=== PATIENT | female | born 1975 | race Caucasian/White ===

== ENCOUNTER 2016-09-01 10:31 | Emergency (ER) | payer BC ==
[~2016-09-01] VITALS: Ht 170.2 cm; Wt 55.2 kg
[~2016-09-01 10:31] MED LIST: MULT-506 PO; NORGTAB36
[2016-09-01 10:38] VITALS: TEMP 36.7; Ht 170.2 cm; Wt 55.2 kg
[2016-09-01] MEDS ORDERED: VNTHFA/IN INH (11:29)
--- NOTE | 2016-09-01 11:32 | EMERGENCY ROOM VISIT NOTE ---
History Report prepared by Rony: Molly Acosta Under the Supervision of: Dr. Kyra Bartlett D.O. First contact with patient: 11:00 Chief Complaint: CARDIAC ASSESSMENT Stated Complaint: CHEST TIGHTNESS Nursing Triage Summary: pt reports training for 10 mile race and has exercise induced asthma , recentl has a tight feeling in chest when running and now has started having pressure and low heart rate with tightness after running. pt reports " I have not run X 1 week and am not very active" History of Present Illness The patient is a 40 year old female who presents to the Emergency Room with complaints of persistent chest tightness that started 3 weeks ago. Nothing seems to make the tightness better or worse. The patient states that she has been training for a 10 mile race since May. She states that she has been pushing herself since she started training. The patient reports that prior to training, she did run regularly. She has been running long distances both inside and outside. She is also experiencing mild shortness of breath that seems to be worse recently. The patient states that she has exercise induced asthma and the shortness of breath is worse with exercise but she still has it when she is not exercising. The patient reports that she is experiencing conversational dyspnea. The patient also reports that she is still experiencing shortness of breath even though she has not exercised for 1 week. Additionally, the patient was evaluated at [facility] one week ago. An EKG was unremarkable besides bradycardia, which the patient states is normal for her. She also received a nebulizer treatment there, which relieved her shortness of breath but the chest tightness persisted. The patient also saw her PCP yesterday and they scheduled her an appointment with cardiology, but she states that the appointment is not until September. The patient reports that all of her symptoms are making her nervous so she decided to come into the ED for further evaluation. The patient states that she is also experiencing increased fatigue and intermittent tingling in her bilateral hands. She denies abdominal pain, urinary symptoms, and diarrhea. She also denies any recent dietary changes or flu-like symptoms. She denies any personal history of GERD as well as any personal or family history of thyroid problems. The patient adds that her grandfather had a HI in his 60s and her father has hyperlipidemia. Source of History: patient Onset: 3 weeks ago Position: chest Quality: other (tightness) Timing: other (persistent) Associated Symptoms: + SOB, + fatigue, No abdominal pain, No diarrhea, No urinary symptoms Note: intermittent tingling in bilateral hands Review of Systems See HPI for pertinent positives & negatives. A total of 10 systems reviewed and were otherwise negative. Past Medical & Surgical Medical Problems: (1) Asthma Family History Heart disease Social History Smoking Status: Never Smoker Marital Status: Housing Status: lives with family Current/Historical Medications Scheduled Multivitamin (Multivitamin), 1 TAB PO DAILY Norgestimate-Ethinyl Estradiol (Ortho Tri-Cyclen), DAILY Scheduled PRN Albuterol Hfa (Ventolin Hfa), 1 PUFFS INH Q6H PRN for SOB/Wheezing Allergies Coded Allergies: No Known Allergies (Verified , 09/01/16) Physical Exam Vital Signs Date Time Temp Pulse Resp B/P Pulse Ox O2 Delivery O2 Flow Rate FiO2 09/01/16 13:27 38 18 99/58 100 Room Air 09/01/16 12:17 34 09/01/16 11:51 37 16 104/69 100 Room Air 09/01/16 10:38 36.7 54 18 123/70 100 Room Air Physical Exam GENERAL: alert, well appearing, well nourished, no distress, non-toxic EYE EXAM: normal conjunctiva, PERRL and EOM's grossly intact OROPHARYNX: no exudate, no erythema, lips, buccal mucosa, and tongue normal and mucous membranes are moist NECK: supple, no nuchal rigidity, no adenopathy, non-tender LUNGS: Clear to auscultation. Normal chest wall mechanics HEART: no murmurs, S1 normal and S2 normal ABDOMEN: abdomen soft, non-tender, normo-active bowel sounds, no masses, no rebound or guarding. BACK: Back is symmetrical on inspection and there is no deformity, no midline tenderness, no CVA tenderness. SKIN: no rashes and no bruising UPPER EXTREMITIES: upper extremities are grossly normal. LOWER EXTREMITIES: No pitting edema. NEURO EXAM: Normal sensorium, cranial nerves II-XII grossly intact, normal speech, no gross weakness of arms, no gross weakness of legs. Medical Decision & Procedures ER Provider Diagnostic Interpretation: Xray results per the radiologist and my interpretation. CHEST 2 VIEWS ROUTINE IMPRESSION: Negative chest. Electronically signed by: Jose Galan M.D. 09/01/2016 11:41 AM Dictated Date/Time: 09/01/2016 11:41 AM Laboratory Results 09/01/16 11:00 Red Blood Count 4.31, Mean Corpuscular Volume 90.0, Mean Corpuscular Hemoglobin 30.2, Mean Corpuscular Hemoglobin Concent 33.5, Mean Platelet Volume 10.0, Neutrophils (%) (Auto) 57.0, Lymphocytes (%) (Auto) 32.2, Monocytes (%) (Auto) 9.0, Eosinophils (%) (Auto) 1.3, Basophils (%) (Auto) 0.5, Neutrophils # (Auto) 2.16, Lymphocytes # (Auto) 1.22, Monocytes # (Auto) 0.34, Eosinophils # (Auto) 0.05, Basophils # (Auto) 0.02 09/01/16 11:00 Test 09/01/16 11:00 09/01/16 11:05 White Blood Count 3.79 K/uL (4.8-10.8) Red Blood Count 4.31 M/uL (4.2-5.4) Hemoglobin 13.0 g/dL (12.0-16.0) Hematocrit 38.8 % (37-47) Mean Corpuscular Volume 90.0 fL (80-100) Mean Corpuscular Hemoglobin 30.2 pg (25-34) Mean Corpuscular Hemoglobin Concent 33.5 g/dl (32-36) Platelet Count 163 K/uL (130-400) Mean Platelet Volume 10.0 fL (7.4-10.4) Neutrophils (%) (Auto) 57.0 % Lymphocytes (%) (Auto) 32.2 % Monocytes (%) (Auto) 9.0 % Eosinophils (%) (Auto) 1.3 % Basophils (%) (Auto) 0.5 % Neutrophils # (Auto) 2.16 K/uL (1.4-6.5) Lymphocytes # (Auto) 1.22 K/uL (1.2-3.4) Monocytes # (Auto) 0.34 K/uL (0.11-0.59) Eosinophils # (Auto) 0.05 K/uL (0-0.5) Basophils # (Auto) 0.02 K/uL (0-0.2) RDW Standard Deviation 44.8 fL (36.4-46.3) RDW Coefficient of Variation 13.5 % (11.5-14.5) Immature Granulocyte % (Auto) 0.0 % Immature Granulocyte # (Auto) 0.00 K/uL (0.00-0.02) Anion Gap 7.0 mmol/L (3-11) Est Creatinine Clear Calc Drug Dose 67.2 ml/min Estimated GFR () 84.7 Estimated GFR (Non- 73.1 BUN/Creatinine Ratio 13.4 (10-20) Calcium Level 9.0 mg/dl (8.5-10.1) Total Bilirubin 0.4 mg/dl (0.2-1) Aspartate Amino Transf (AST/SGOT) 15 U/L (15-37) Alanine Aminotransferase (ALT/SGPT) 19 U/L (12-78) Alkaline Phosphatase 29 U/L (45-117) Troponin I < 0.015 ng/ml (0-0.045) Pro-B-Type Natriuretic Peptide 109 pg/ml (0-450) Total Protein 6.9 gm/dl (6.4-8.2) Albumin 3.7 gm/dl (3.4-5.0) Globulin 3.2 gm/dl (2.5-4.0) Albumin/Globulin Ratio 1.2 (0.9-2) Thyroid Stimulating Hormone (TSH) 0.977 uIu/ml (0.300-4.500) D-Dimer < 190 ug/L FEU (0-500) Laboratory results per my review. Medications Administered Medications (Trade) Dose Ordered Sig/Maximus Route Start Time Stop Time Status Last Admin Dose Admin Al Hydroxide/Mg Hydroxide (Maalox Susp) 15 ml NOW STAT PO 09/01/16 12:20 09/01/16 12:22 DC 09/01/16 12:20 15 ML Alprazolam (Xanax Tab) 0.25 mg 1230 ONCE PO 09/01/16 12:30 09/01/16 12:31 DC 09/01/16 12:30 0.25 MG ECG Indication: chest pain Rate (beats per minute): 37 Rhythm: sinus bradycardia Findings: no acute ischemic change, no ectopy, other (normal axis, normal intervals) ED Course 1102: The patient was evaluated in room C6. A complete history and physical exam was performed. 1214: I reassessed the patient. She admits to being anxious and would like to try some Xanax. 1220: Ordered Maalox Susp 15 ml PO 1230: Ordered Xanax Tab 0.25 mg PO 1310: Upon reevaluation, the patient is feeling better. I discussed the findings and the treatment plan with the patient. She verbalizes agreement and understanding. She was discharged home. Medical Decision Differential diagnoses includes but is not limited to acute coronary syndrome, myocardial infarction, pericarditis, pulmonary embolus, aortic dissection, pneumonia, pneumothorax, musculoskeletal, shingles, esophageal. Pt likely with component of anxiety in addition to likely exercise induced asthma. Pt well appearing. Hx of bradycardia, likely persistent due to conditioning from running. Doubt related to chest pain/sob. Pt improved. Doubt tamponade, chf, gi bleed, perf, infectious etiology, discussed leukopenia and recheck with PCP. VS otw stable and pt well appearing at dc. Discussed f/ u with cardiology, sx to watch/return for, she verbalized understanding and was agreeable with plan. Impression Primary Impression: Chest tightness Additional Impression: Anxiety Scribe Attestation The scribe's documentation has been prepared under my direction and personally reviewed by me in its entirety. I confirm that the note above accurately reflects all work, treatment, procedures, and medical decision making performed by me. Departure Information Dispostion Home / Self-Care Referrals Christa Pineda DO (PCP) Forms IMPORTANT VISIT INFORMATION Patient Instructions My [facility] Additional Instructions Please: Follow-up with her family doctor this week. Please keep your appointment with cardiology as scheduled. Please avoid any strenuous activity and vigorous exercise until you are seen and evaluated by cardiology. Please eat and drink normally. If you have any recurrent episodes of chest discomfort , trouble breathing, feel dizzy/lightheaded, or you have any other new or concerning symptoms, please return the emergency room. Problem Qualifiers
[2016-09-01 11:34] LABS: BASO % 0.5 %; BASO ABS # 0.02 K/uL (0-0.2); COMPLETE YES; EOS % 1.3 %; HEMATOCRIT 38.8 % (37-47); LYMPH % 32.2 %; LYMPH ABS # 1.22 K/uL (1.2-3.4); MEAN CORPUSCULAR HEMOGLOBIN 30.2 pg (25-34); MEAN CORPUSCULAR HGB CONC 33.5 g/dl (32-36); PLATELET COUNT 163 K/uL (130-400); RED BLOOD COUNT 4.31 M/uL (4.2-5.4); WHITE BLOOD COUNT 3.79 K/uL (4.8-10.8)
[2016-09-01 11:39] LABS: BLOOD UREA NITROGEN 13 mg/dl (7-18); BUN/CREATININE RATIO 13.4 (10-20); CARBON DIOXIDE 28 mmol/L (21-32); CHLORIDE 106 mmol/L (98-107); CREATININE 0.97 mg/dl (0.60-1.20); GLUCOSE 91 mg/dl (70-99); POTASSIUM 3.9 mmol/L (3.5-5.1); SODIUM 141 mmol/L (136-145)
--- NOTE | 2016-09-01 11:43 | DIAGNOSTIC IMAGING REPORT ---
CHEST 2 VIEWS ROUTINE CLINICAL HISTORY: sob, cp dyspnea COMPARISON STUDY: 08/31/2015 FINDINGS: The bones soft tissues and hemidiaphragms are normal. The cardiomediastinal silhouette is normal. The lungs are clear. The pulmonary vasculature is normal. IMPRESSION: Negative chest. Electronically signed by: Jose Galan M.D. 09/01/2016 11:41 AM Dictated Date/Time: 09/01/2016 11:41 AM
[2016-09-01 11:49] LABS: ALB/GLOB RATIO 1.2 (0.9-2); ALKALINE PHOSPHATASE 29 U/L (45-117); ALT/SGPT 19 U/L (12-78); AST/SGOT 15 U/L (15-37); THYROID STIMULATING HORMONE 0.977 uIu/ml (0.300-4.500)
[2016-09-01] MEDS ORDERED: ALUMINUM/MAGNESIUM SUSP 30 ML UDC PO STA (12:20)
[2016-09-01] MEDS ORDERED: ALPRAZOLAM 0.25 MG TAB PO STA (12:20)
[2016-09-01] MEDS ORDERED: ALPRAZOLAM 0.5 MG TAB PO ONE (12:30)
[2016-09-01 13:27] VITALS: BP 99/58; PULSE 38; O2SAT 100
== END 2016-09-01 13:46 | disposition home or self-care (01) ==
LOC: C.EDB 10:35 → C.EDC 13:46
DX: R07.89 Other chest pain (principal); F41.9 Anxiety disorder, unspecified; J45.909 Unspecified asthma, uncomplicated; Z82.49 Family history of ischemic heart disease and other diseases of the circulatory system